=== PATIENT | male | born 1995 | race Caucasian/White ===

== ENCOUNTER 2022-10-13 09:17 | Emergency (ER) | payer SELFPAY | END 2022-10-13 11:00 | disposition home or self-care (01) | LOC: CSHERS 09:17 | DX: S16.1XXA Strain of muscle, fascia and tendon at neck level, initial encounter (principal); S00.83XA Contusion of other part of head, initial encounter; F10.129 Alcohol abuse with intoxication, unspecified; X83.8XXA Intentional self-harm by other specified means, initial encounter | CPT/HCPCS: 70450; 72125; 96360 ==

== ENCOUNTER 2022-10-16 15:15 | Inpatient (IN) | payer SELFPAY ==
[2022-10-16 16:22] LABS: #Basophils 0.1 10x3/uL (0.0-0.2); #Eosinphils 0.1 10x3/uL (0.0-0.5); #Monocytes 0.3 10x3/uL (0.0-1.1); #Neutrophils 2.3 10x3/uL (1.5-8.4); %Basophils 1.6 % (0.0-2.0); %Lymphocytes 43.8 % (18.0-47.0); %Monocytes 6.6 % (0.0-10.0); %Neutrophils 46.8 % (40.0-75.0); Hemoglobin 16.6 g/dL (13.5-17.5); Mean Corpuscular HGB CONC 33.4 g/dL (32.0-36.0); Mean Corpuscular Hemoglobin 29.6 pg (27.0-33.0); Mean Corpuscular Volume 88.8 fl (81.2-95.1); Mean Platelet Volume 10.4 fl (7.4-10.4); Platelet Count 305 10x3/uL (150-450); RBC Distribution Width 14.4 % (11.5-14.5)
[2022-10-16 16:29] LABS: Acetaminophen Less than 10.0 mcg/mL (10.0-30.0); Salicylate Less than 8.0 mg/dL (15.0-30.0)
[2022-10-16 16:30] LABS: ALT (SGPT) 217 U/L (8-55); AST (SGOT) 90 U/L (5-34); Albumin 4.5 g/dL (3.5-5.0); Alkaline Phosphatase 62 U/L (40-110); Anion Gap 16 mmol/L (10-20); BUN (Urea Nitrogen) 4 mg/dL (8.9-20.6); Bilirubin, Total 0.3 mg/dL (0.2-1.2); Calc. Creatinine Clearance 0 mL/min (70-130); Calcium 8.5 mg/dL (7.8-10.44); Carbon Dioxide 27 mmol/L (22-29); Chloride 108 mmol/L (98-107); Estimated GFR 126; Globulin 3.1 g/dL (2.4-3.5); Glucose 130 mg/dL (70-105); Protein, Total 7.6 g/dL (6.0-8.3); Sodium 147 mmol/L (136-145)
[2022-10-16 16:39] LABS: Alcohol Greater than 475 mg/dL (Less than 10)
[2022-10-16] MEDS ORDERED: Thiamine 100 MG TAB ONE (17:01)
[2022-10-16] MEDS ORDERED: Ondansetron PF 4 MG/2 ML Vial ONE (17:01)
[2022-10-16] MEDS ORDERED: levETIRAcetam 500 MG TAB ONE (17:01)
[2022-10-16] MEDS ORDERED: Folic Acid 1 MG in Syringe 0 ML SC SCH (19:15)
[2022-10-16] MEDS ORDERED: chlordiazePOXIDE HCl 5 MG CAP ONE (19:58)
[2022-10-16] MEDS ORDERED: Lorazepam 2 MG/ML VIAL SLOW IVP SCH (20:00)
[2022-10-16] MEDS ORDERED: Ondansetron ODT 4 MG TAB PO PRN (20:03)
[2022-10-16] MEDS ORDERED: Lorazepam 2 MG/ML VIAL IM PRN (20:03)
[2022-10-16] MEDS ORDERED: Lorazepam 1 MG TAB PO PRN (20:03)
[2022-10-16] MEDS ORDERED: Lorazepam 2 MG/ML VIAL ONE (20:10)
[2022-10-16] MEDS ORDERED: Multivitamins, Adult 10 ML, Folic Acid 1 MG, Thiamine HCl 100 MG in Dextrose 5 %-0.45 %... IV SCH (20:15)
[2022-10-16] MEDS ORDERED: Electrolyte Replacement Protocol FS SCH (20:15)
[2022-10-16] MEDS ORDERED: levETIRAcetam in NS 500 MG in Premix Bag 1 BAG IVPB SCH (21:00)
[2022-10-16 21:02] LABS: Phosphorus 2.3 mg/dL (2.3-4.7)
[2022-10-16 21:22] VITALS: BMI 20.9
[2022-10-16] MEDS: Sodium Chloride 0.9% 1,000 ML IV SCH (21:41)
[2022-10-16] MEDS: levETIRAcetam 500 MG/5 ML VIAL SLOW IVP SCH ×3 (21:41→22:28)
[2022-10-16] MEDS: Thiamine HCl 200 MG/2 ML VIAL SLOW IVP SCH ×2 (21:45→22:28)
[2022-10-16] MEDS ORDERED: Folic Acid 1 MG TAB PO SCH (21:45)
[2022-10-16] MEDS ORDERED: Magnesium 2 GM/50 ML(in water) 2 GM in Premix Bag 1 BAG IVPB SCH (22:00)
[2022-10-16 23:00] LABS: SARS-CoV-2 NAA Rapid Test Not Detected (NotDetected)
[2022-10-17] MEDS: Lorazepam 1 MG TAB PO SCH ×2 (00:12→05:12)
[2022-10-17 01:42] LABS: Syphilis Antibody Nonreactive (Nonreactive); Syphilis Antibody Index 0.03 S/CO (<1.00 Non-Reactive)
[2022-10-17] MEDS ORDERED: Artificial Tear Sol 15 ML BOT EA EYE PRN (02:58)
[2022-10-17 03:19] LABS: Amphetamine Not Detected (NotDetected); Barbiturates Screen Not Detected (NotDetected); Benzodiazepine Screen Detected (NotDetected); Cocaine Metabolite Screen Not Detected (NotDetected); Methadone Not Detected (NotDetected); Methamphetamine Not Detected (NotDetected); Opiate Screen Not Detected (NotDetected); Oxycodone Screen Not Detected (NotDetected); Phencyclidine (PCP) Not Detected (NotDetected); THC/Cannabinoid Screen Not Detected (NotDetected); Tricyclic Screen Not Detected (NotDetected)
[2022-10-17 04:30] LABS: #Basophils 0.1 10x3/uL (0.0-0.2); #Eosinphils 0.1 10x3/uL (0.0-0.5); #Monocytes 0.5 10x3/uL (0.0-1.1); #Neutrophils 3.9 10x3/uL (1.5-8.4); %Basophils 1.4 % (0.0-2.0); %Eosinophils 1.7 % (0.0-6.0); %Lymphocytes 30.2 % (18.0-47.0); %Monocytes 7.3 % (0.0-10.0); %Neutrophils 59.4 % (40.0-75.0); Hemoglobin 14.9 g/dL (13.5-17.5); Mean Corpuscular HGB CONC 33.3 g/dL (32.0-36.0); Mean Corpuscular Hemoglobin 29.7 pg (27.0-33.0); Mean Corpuscular Volume 89.4 fl (81.2-95.1); Platelet Count 253 10x3/uL (150-450); RBC Distribution Width 14.4 % (11.5-14.5); Red Blood Cell (RBC) Count 5.01 10x6/uL (4.32-5.72); White Blood Cell (WBC) Count 6.6 10x3/uL (3.5-10.5)
[2022-10-17 04:44] LABS: Anion Gap 15 mmol/L (10-20); BUN (Urea Nitrogen) 7 mg/dL (8.9-20.6); Calc. Creatinine Clearance 137 mL/min (70-130); Calcium 8.4 mg/dL (7.8-10.44); Carbon Dioxide 26 mmol/L (22-29); Chloride 109 mmol/L (98-107); Estimated GFR 122; Glucose 106 mg/dL (70-105); Potassium 3.9 mmol/L (3.5-5.1); Sodium 146 mmol/L (136-145)
[2022-10-17 04:49] LABS: Phosphorus 2.9 mg/dL (2.3-4.7)
[2022-10-17] MEDS: Sodium Chloride 0.9% 1,000 ML IV SCH (05:54)
[2022-10-17] MEDS ORDERED: Magnesium 2 GM/50 ML(in water) 2 GM in Premix Bag 1 BAG IVPB SCH (08:00)
[2022-10-17 08:05] VITALS: BP 144/82; TEMP 98.2
[2022-10-17] MEDS ORDERED: FLU VACC QS2022-23(6MOS UP)/PF 60 MCG/0.5 ML SYRINGE IM ONE (09:00)
[2022-10-17] MEDS ORDERED: Multivit, Therapeutic 1 TAB PO SCH (09:00)
[2022-10-17] MEDS ORDERED: Folic Acid 1 MG TAB PO SCH (09:00)
[2022-10-17] MEDS ORDERED: Lorazepam 1 MG TAB PO PRN (20:03)
[2022-10-18] MEDS ORDERED: Lorazepam 1 MG TAB PO PRN (20:03)
[2022-10-19] MEDS ORDERED: Lorazepam 0.5 MG TAB PO SCH (06:00)
[2022-10-19] MEDS ORDERED: Lorazepam 0.5 MG TAB PO PRN (20:03)
[2022-10-19] MEDS ORDERED: Thiamine 100 MG TAB PO SCH (21:00)
== END 2022-10-17 08:05 | disposition left against medical advice (07) | DRG 894 ==
LOC: CSHERS 15:15 → CSHTELE 21:13
PROVIDERS: ADMIT Family Medicine; ATTEND Family Medicine
DX: F10.939 Alcohol use, unspecified with withdrawal, unspecified (principal); F41.9 Anxiety disorder, unspecified; Z59.00 Homelessness unspecified; F19.10 Other psychoactive substance abuse, uncomplicated; Z20.822 Contact with and (suspected) exposure to COVID-19
CPT/HCPCS: 36415; 80048; 80053; 80306; 80307; 83690; 83735; 84100; 85025; 86780; 93005; 96361; 96372; 96374; 96375; J1953; J2060; J2405; J3411; J3475; J7050; U0002

== ENCOUNTER 2022-10-17 16:38 | Emergency (ER) | payer SELFPAY ==
[2022-10-17 17:11] LABS: #Basophils 0.1 10x3/uL (0.0-0.2); #Monocytes 0.5 10x3/uL (0.0-1.1); #Neutrophils 3.4 10x3/uL (1.5-8.4); %Basophils 1.4 % (0.0-2.0); %Eosinophils 0.3 % (0.0-6.0); %Lymphocytes 32.1 % (18.0-47.0); %Monocytes 7.6 % (0.0-10.0); %Neutrophils 58.4 % (40.0-75.0); Hemoglobin 15.9 g/dL (13.5-17.5); Mean Corpuscular HGB CONC 33.5 g/dL (32.0-36.0); Mean Corpuscular Hemoglobin 29.7 pg (27.0-33.0); Mean Corpuscular Volume 88.6 fl (81.2-95.1); Platelet Count 259 10x3/uL (150-450); RBC Distribution Width 14.2 % (11.5-14.5); Red Blood Cell (RBC) Count 5.36 10x6/uL (4.32-5.72); White Blood Cell (WBC) Count 5.9 10x3/uL (3.5-10.5)
[2022-10-17] MEDS ORDERED: Thiamine HCl 100 MG, Folic Acid 1 MG in Dextrose 5 %-0.45 % NaCl 1,000 ML IVPB SCH (17:15)
[2022-10-17] MEDS ORDERED: Multivitamin W/ Minerals 1 TAB PO SCH (17:15)
[2022-10-17 17:27] LABS: Acetaminophen Less than 10.0 mcg/mL (10.0-30.0); Alcohol 436 mg/dL (Less than 10); Salicylate Less than 8.0 mg/dL (15.0-30.0)
[2022-10-17 17:28] LABS: ALT (SGPT) 177 U/L (8-55); AST (SGOT) 77 U/L (5-34); Albumin 4.4 g/dL (3.5-5.0); Alkaline Phosphatase 60 U/L (40-110); Anion Gap 17 mmol/L (10-20); BUN (Urea Nitrogen) 5 mg/dL (8.9-20.6); Bilirubin, Total 0.4 mg/dL (0.2-1.2); Calc. Creatinine Clearance 0 mL/min (70-130); Calcium 8.6 mg/dL (7.8-10.44); Carbon Dioxide 24 mmol/L (22-29); Chloride 107 mmol/L (98-107); Estimated GFR 119; Globulin 2.9 g/dL (2.4-3.5); Glucose 172 mg/dL (70-105); Potassium 3.4 mmol/L (3.5-5.1); Protein, Total 7.3 g/dL (6.0-8.3); Sodium 145 mmol/L (136-145)
[2022-10-17 18:02] LABS: Amphetamine Not Detected (NotDetected); Barbiturates Screen Not Detected (NotDetected); Benzodiazepine Screen Detected (NotDetected); Cocaine Metabolite Screen Not Detected (NotDetected); Methadone Not Detected (NotDetected); Methamphetamine Not Detected (NotDetected); Opiate Screen Not Detected (NotDetected); Oxycodone Screen Not Detected (NotDetected); Phencyclidine (PCP) Not Detected (NotDetected); THC/Cannabinoid Screen Not Detected (NotDetected); Tricyclic Screen Not Detected (NotDetected)
== END 2022-10-17 21:03 | disposition home or self-care (01) ==
LOC: CSHERS 16:38
DX: F10.129 Alcohol abuse with intoxication, unspecified (principal); Y90.8 Blood alcohol level of 240 mg/100 ml or more
CPT/HCPCS: 36415; 80306; 80307; 96365; 96366; J3411; J7042

== ENCOUNTER 2022-10-18 19:04 | Inpatient (IN) | payer SELFPAY ==
[2022-10-18 19:56] LABS: #Basophils 0.1 10x3/uL (0.0-0.2); #Eosinphils 0.1 10x3/uL (0.0-0.5); #Monocytes 0.4 10x3/uL (0.0-1.1); #Neutrophils 3.6 10x3/uL (1.5-8.4); %Basophils 1.2 % (0.0-2.0); %Lymphocytes 28.4 % (18.0-47.0); %Monocytes 7.4 % (0.0-10.0); %Neutrophils 61.8 % (40.0-75.0); Hemoglobin 15.5 g/dL (13.5-17.5); Mean Corpuscular HGB CONC 34.3 g/dL (32.0-36.0); Mean Corpuscular Hemoglobin 29.9 pg (27.0-33.0); Mean Corpuscular Volume 87.3 fl (81.2-95.1); Platelet Count 246 10x3/uL (150-450); Red Blood Cell (RBC) Count 5.18 10x6/uL (4.32-5.72); White Blood Cell (WBC) Count 5.8 10x3/uL (3.5-10.5)
[2022-10-18 20:10] LABS: ALT (SGPT) 163 U/L (8-55); AST (SGOT) 89 U/L (5-34); Acetaminophen Less than 10.0 mcg/mL (10.0-30.0); Albumin 4.5 g/dL (3.5-5.0); Alcohol 400 mg/dL (Less than 10); Alkaline Phosphatase 63 U/L (40-110); Anion Gap 18 mmol/L (10-20); BUN (Urea Nitrogen) 6 mg/dL (8.9-20.6); Bilirubin, Total 0.5 mg/dL (0.2-1.2); Calc. Creatinine Clearance 0 mL/min (70-130); Carbon Dioxide 26 mmol/L (22-29); Chloride 104 mmol/L (98-107); Estimated GFR 122; Globulin 2.9 g/dL (2.4-3.5); Glucose 111 mg/dL (70-105); Potassium 3.6 mmol/L (3.5-5.1); Protein, Total 7.4 g/dL (6.0-8.3); Salicylate Less than 8.0 mg/dL (15.0-30.0); Sodium 144 mmol/L (136-145)
[2022-10-18 20:20] LABS: Amphetamine Not Detected (NotDetected); Barbiturates Screen Not Detected (NotDetected); Benzodiazepine Screen Not Detected (NotDetected); Cocaine Metabolite Screen Not Detected (NotDetected); Methadone Not Detected (NotDetected); Methamphetamine Not Detected (NotDetected); Opiate Screen Not Detected (NotDetected); Oxycodone Screen Not Detected (NotDetected); Phencyclidine (PCP) Not Detected (NotDetected); THC/Cannabinoid Screen Not Detected (NotDetected); Tricyclic Screen Not Detected (NotDetected)
[2022-10-18] MEDS ORDERED: Lorazepam 2 MG/ML VIAL ONE (21:52)
[2022-10-18 22:39] VITALS: BMI 23.7
[2022-10-18] MEDS ORDERED: Ondansetron ODT 4 MG TAB PO PRN ×2 (22:51→23:00)
[2022-10-18] MEDS ORDERED: Ondansetron PF 4 MG/2 ML Vial IVP PRN (22:51)
[2022-10-18] MEDS ORDERED: Thiamine HCl 200 MG/2 ML VIAL SLOW IVP SCH (23:00)
[2022-10-18] MEDS ORDERED: Lorazepam 2 MG/ML VIAL IM PRN (23:00)
[2022-10-18] MEDS ORDERED: Electrolyte Replacement Protocol FS SCH (23:00)
[2022-10-18] MEDS ORDERED: Multivitamin W/ Minerals 1 TAB PO SCH (23:15)
[2022-10-18] MEDS ORDERED: Pantoprazole 40 MG VIAL IVP SCH (23:15)
[2022-10-18] MEDS ORDERED: Folic Acid 1 MG TAB PO SCH (23:15)
[2022-10-18 23:18] LABS: Magnesium 1.7 mg/dL (1.6-2.6); Phosphorus 2.9 mg/dL (2.3-4.7)
[2022-10-18] MEDS: Lorazepam 1 MG TAB PO SCH (23:40)
[2022-10-18] MEDS: Potassium Chloride 20 MEQ in Lactated Ringer's 1,000 ML IV SCH (23:47)
[2022-10-19] MEDS: Lorazepam 1 MG TAB PO PRN ×2 (01:45→03:57)
[2022-10-19 04:29] LABS: #Basophils 0.1 10x3/uL (0.0-0.2); #Eosinphils 0.1 10x3/uL (0.0-0.5); #Monocytes 0.5 10x3/uL (0.0-1.1); #Neutrophils 3.4 10x3/uL (1.5-8.4); %Basophils 1.3 % (0.0-2.0); %Lymphocytes 35.4 % (18.0-47.0); %Monocytes 7.4 % (0.0-10.0); %Neutrophils 54.9 % (40.0-75.0); Hemoglobin 14.6 g/dL (13.5-17.5); Mean Corpuscular HGB CONC 33.5 g/dL (32.0-36.0); Mean Corpuscular Hemoglobin 29.3 pg (27.0-33.0); Mean Corpuscular Volume 87.4 fl (81.2-95.1); Mean Platelet Volume 10.1 fl (7.4-10.4); Platelet Count 242 10x3/uL (150-450); Red Blood Cell (RBC) Count 4.99 10x6/uL (4.32-5.72); White Blood Cell (WBC) Count 6.1 10x3/uL (3.5-10.5)
[2022-10-19 04:41] LABS: Anion Gap 17 mmol/L (10-20); BUN (Urea Nitrogen) 7 mg/dL (8.9-20.6); Calc. Creatinine Clearance 150 mL/min (70-130); Calcium 8.6 mg/dL (7.8-10.44); Carbon Dioxide 24 mmol/L (22-29); Chloride 106 mmol/L (98-107); Estimated GFR 121; Glucose 99 mg/dL (70-105); Potassium 3.7 mmol/L (3.5-5.1); Sodium 143 mmol/L (136-145)
[2022-10-19] MEDS: Lorazepam 1 MG TAB PO SCH (05:58)
[2022-10-19] MEDS: Potassium Chloride 20 MEQ in Lactated Ringer's 1,000 ML IV SCH (08:43)
[2022-10-19] MEDS ORDERED: Folic Acid 1 MG TAB PO SCH ×2 (09:00)
[2022-10-19] MEDS ORDERED: Multivit, Therapeutic 1 TAB PO SCH (09:00)
[2022-10-19] MEDS ORDERED: Pantoprazole 40 MG VIAL IVP SCH (09:00)
[2022-10-19] MEDS ORDERED: Multivitamin W/ Minerals 1 TAB PO SCH (09:00)
[2022-10-19] MEDS ORDERED: Lorazepam 0.5 MG TAB PO PRN (09:34)
[2022-10-19 11:50] VITALS: BP 124/66; TEMP 99.8
[2022-10-19] MEDS ORDERED: Lorazepam 0.5 MG TAB PO SCH (12:00)
[2022-10-19 16:21] LABS: Hep C IgG Ab Non-Reactive (NonReactive); Hep C Index 0.08 S/CO (0-0.79)
[2022-10-19] MEDS ORDERED: Lorazepam 1 MG TAB PO PRN (23:00)
[2022-10-20] MEDS ORDERED: Lorazepam 1 MG TAB PO PRN (23:00)
[2022-10-21] MEDS ORDERED: Thiamine 100 MG TAB PO SCH (21:00)
[2022-10-21] MEDS ORDERED: Lorazepam 0.5 MG TAB PO PRN (23:00)
== END 2022-10-19 16:08 | disposition home or self-care (01) | DRG 897 ==
LOC: CSHERS 19:04 → CSHTELE 22:30
PROVIDERS: ADMIT Family Medicine; ATTEND Hospitalist
DX: F10.232 Alcohol dependence with withdrawal with perceptual disturbance (principal); K92.0 Hematemesis; Z20.822 Contact with and (suspected) exposure to COVID-19; F19.11 Other psychoactive substance abuse, in remission; R74.01 Elevation of levels of liver transaminase levels; Z71.41 Alcohol abuse counseling and surveillance of alcoholic; F10.231 Alcohol dependence with withdrawal delirium
CPT/HCPCS: 36415; 80048; 80053; 80306; 80307; 83735; 84100; 85025; 86803; 96374; C9113; J2060; J3411; J3475; J3480; J7120; U0003; U0005

== ENCOUNTER 2023-02-10 07:28 | Emergency (ER) | payer SELFPAY ==
[2023-02-10 08:19] LABS: #Basophils 0.1 10x3/uL (0.0-0.2); #Eosinphils 0.1 10x3/uL (0.0-0.5); #Monocytes 0.6 10x3/uL (0.0-1.1); %Basophils 1.2 % (0.0-2.0); %Eosinophils 1.2 % (0.0-6.0); %Lymphocytes 30.3 % (18.0-47.0); %Monocytes 8.9 % (0.0-10.0); %Neutrophils 58.1 % (40.0-75.0); Hemoglobin 15.6 g/dL (13.5-17.5); Mean Corpuscular HGB CONC 35.9 g/dL (32.0-36.0); Mean Corpuscular Hemoglobin 30.4 pg (27.0-33.0); Mean Corpuscular Volume 84.6 fl (81.2-95.1); Mean Platelet Volume 10.4 fl (7.4-10.4); Platelet Count 254 10x3/uL (150-450); RBC Distribution Width 13.2 % (11.5-14.5); Red Blood Cell (RBC) Count 5.14 10x6/uL (4.32-5.72); White Blood Cell (WBC) Count 6.9 10x3/uL (3.5-10.5)
[2023-02-10 08:42] LABS: Acetaminophen Less than 10 mcg/mL (10.0-30.0); Alcohol 419.4 mg/dL (Less than 10); Magnesium 2.1 mg/dL (1.6-2.6); Salicylate Less than 8.0 mg/dL (15.0-30.0)
[2023-02-10 08:43] LABS: ALT (SGPT) 36 U/L (8-55); AST (SGOT) 33 U/L (5-34); Albumin 4.4 g/dL (3.5-5.0); Alkaline Phosphatase 47 U/L (40-110); Anion Gap 15 mmol/L (10-20); BUN (Urea Nitrogen) 6 mg/dL (8.9-20.6); Bilirubin, Total 0.7 mg/dL (0.2-1.2); Calc. Creatinine Clearance 0 mL/min (70-130); Calcium 8.2 mg/dL (7.8-10.44); Carbon Dioxide 23 mmol/L (22-29); Chloride 109 mmol/L (98-107); Estimated GFR 120; Globulin 2.7 g/dL (2.4-3.5); Glucose 164 mg/dL (70-105); Potassium 2.9 mmol/L (3.5-5.1); Protein, Total 7.1 g/dL (6.0-8.3); Sodium 144 mmol/L (136-145)
[2023-02-10 09:34] LABS: Amphetamine Not Detected (NotDetected); Barbiturates Screen Not Detected (NotDetected); Benzodiazepine Screen Not Detected (NotDetected); Cocaine Metabolite Screen Not Detected (NotDetected); Methadone Not Detected (NotDetected); Methamphetamine Not Detected (NotDetected); Opiate Screen Not Detected (NotDetected); Oxycodone Screen Not Detected (NotDetected); Phencyclidine (PCP) Not Detected (NotDetected); THC/Cannabinoid Screen Not Detected (NotDetected); Tricyclic Screen Not Detected (NotDetected)
[2023-02-10] MEDS ORDERED: Potassium Chloride 20 MEQ TAB ONE (10:00)
== END 2023-02-10 10:05 | disposition home or self-care (01) ==
LOC: CSHERS 07:28
DX: F10.129 Alcohol abuse with intoxication, unspecified (principal); E87.6 Hypokalemia; F17.290 Nicotine dependence, other tobacco product, uncomplicated
CPT/HCPCS: 80053; 80306; 80307; 83735; 85025; 99284

== ENCOUNTER 2023-02-10 10:56 | Emergency (ER) | payer SELFPAY ==
[2023-02-10 11:30] LABS: #Basophils 0.1 10x3/uL (0.0-0.2); #Eosinphils 0.1 10x3/uL (0.0-0.5); #Monocytes 0.6 10x3/uL (0.0-1.1); #Neutrophils 4.4 10x3/uL (1.5-8.4); %Basophils 0.9 % (0.0-2.0); %Eosinophils 0.7 % (0.0-6.0); %Lymphocytes 32.4 % (18.0-47.0); %Monocytes 7.4 % (0.0-10.0); %Neutrophils 58.2 % (40.0-75.0); Hemoglobin 15.8 g/dL (13.5-17.5); Mean Corpuscular HGB CONC 35.3 g/dL (32.0-36.0); Mean Platelet Volume 10.3 fl (7.4-10.4); Platelet Count 255 10x3/uL (150-450); RBC Distribution Width 13.2 % (11.5-14.5); Red Blood Cell (RBC) Count 5.26 10x6/uL (4.32-5.72); White Blood Cell (WBC) Count 7.5 10x3/uL (3.5-10.5)
[2023-02-10 11:48] LABS: Acetaminophen Less than 10 mcg/mL (10.0-30.0); Alcohol 455.4 mg/dL (Less than 10); Magnesium 2.1 mg/dL (1.6-2.6); Salicylate Less than 8.0 mg/dL (15.0-30.0)
[2023-02-10 11:50] LABS: ALT (SGPT) 35 U/L (8-55); AST (SGOT) 32 U/L (5-34); Albumin 4.5 g/dL (3.5-5.0); Alkaline Phosphatase 50 U/L (40-110); Anion Gap 12 mmol/L (10-20); BUN (Urea Nitrogen) 5 mg/dL (8.9-20.6); Bilirubin, Total 0.6 mg/dL (0.2-1.2); Calc. Creatinine Clearance 0 mL/min (70-130); Calcium 8.3 mg/dL (7.8-10.44); Carbon Dioxide 26 mmol/L (22-29); Chloride 110 mmol/L (98-107); Estimated GFR 119; Globulin 2.6 g/dL (2.4-3.5); Glucose 186 mg/dL (70-105); Potassium 3.4 mmol/L (3.5-5.1); Protein, Total 7.1 g/dL (6.0-8.3); Sodium 145 mmol/L (136-145)
== END 2023-02-10 15:31 | disposition left against medical advice (07) ==
LOC: CSHERS 10:56
DX: F10.129 Alcohol abuse with intoxication, unspecified (principal); F17.290 Nicotine dependence, other tobacco product, uncomplicated
CPT/HCPCS: 80307; 83735; 99284

== ENCOUNTER 2023-02-10 15:48 | Emergency (ER) | payer SELFPAY | END 2023-02-10 16:30 | disposition home or self-care (01) | LOC: CSHERS 15:48 | DX: F10.129 Alcohol abuse with intoxication, unspecified (principal); F17.290 Nicotine dependence, other tobacco product, uncomplicated | CPT/HCPCS: 99283 ==

== ENCOUNTER 2023-03-18 23:02 | Emergency (ER) | payer SELFPAY ==
[2023-03-18] MEDS ORDERED: Ondansetron PF 4 MG/2 ML Vial ONE (23:33)
[2023-03-18 23:43] LABS: #Basophils 0.1 10x3/uL (0.0-0.2); #Eosinphils 0.1 10x3/uL (0.0-0.5); #Monocytes 0.7 10x3/uL (0.0-1.1); #Neutrophils 4.6 10x3/uL (1.5-8.4); %Basophils 1.5 % (0.0-2.0); %Eosinophils 1.2 % (0.0-6.0); %Lymphocytes 39.3 % (18.0-47.0); %Monocytes 7.8 % (0.0-10.0); %Neutrophils 50.1 % (40.0-75.0); Hematocrit 41.9 % (38.8-50.0); Mean Corpuscular HGB CONC 35.8 g/dL (32.0-36.0); Mean Corpuscular Hemoglobin 31.4 pg (27.0-33.0); Mean Corpuscular Volume 87.8 fl (81.2-95.1); Mean Platelet Volume 10.8 fl (7.4-10.4); Platelet Count 247 10x3/uL (150-450); RBC Distribution Width 13.2 % (11.5-14.5); Red Blood Cell (RBC) Count 4.77 10x6/uL (4.32-5.72); White Blood Cell (WBC) Count 9.1 10x3/uL (3.5-10.5)
[2023-03-18 23:54] LABS: PTT 26.2 sec (22.0-33.0); Prothrombin Time 10.9 sec (9.5-12.1)
[2023-03-18 23:58] LABS: Acetaminophen Less than 10 mcg/mL (10.0-30.0); Alcohol 292.7 mg/dL (Less than 10); Lipase 28 U/L (8-78); Magnesium 1.9 mg/dL (1.6-2.6); Salicylate Less than 8.0 mg/dL (15.0-30.0)
[2023-03-18 23:59] LABS: ALT (SGPT) 103 U/L (8-55); AST (SGOT) 50 U/L (5-34); Albumin 4.5 g/dL (3.5-5.0); Alkaline Phosphatase 47 U/L (40-110); Anion Gap 17 mmol/L (10-20); BUN (Urea Nitrogen) 13 mg/dL (8.9-20.6); Bilirubin, Total 0.9 mg/dL (0.2-1.2); Calc. Creatinine Clearance 0 mL/min (70-130); Calcium 8.7 mg/dL (7.8-10.44); Carbon Dioxide 24 mmol/L (22-29); Chloride 104 mmol/L (98-107); Estimated GFR 120; Globulin 2.7 g/dL (2.4-3.5); Glucose 107 mg/dL (70-105); Potassium 3.2 mmol/L (3.5-5.1); Protein, Total 7.2 g/dL (6.0-8.3); Sodium 142 mmol/L (136-145)
[2023-03-19] MEDS ORDERED: Pantoprazole 40 MG VIAL ONE (00:18)
== END 2023-03-19 00:41 | disposition home or self-care (01) ==
LOC: CSHERS 23:02
DX: F10.129 Alcohol abuse with intoxication, unspecified (principal); K29.70 Gastritis, unspecified, without bleeding; F17.290 Nicotine dependence, other tobacco product, uncomplicated
CPT/HCPCS: 71045; 80053; 80307; 83690; 83735; 85025; 85610; 85730; 86850; 86900; 86901; 96374; 96375; C9113; J2405